=== PATIENT | female | born 1990 | race Caucasian/White ===

== ENCOUNTER 2017-02-13 16:46 | Day surgery (SDC) | payer OTHER ==
[2017-02-13 17:34] VITALS: BMI 23.0
[2017-02-13 19:01] LABS: Hemoglobin 12.2 g/dL (12.0-16.0); Mean Corpuscular HGB CONC 34.3 g/dL (32.0-36.0); Mean Corpuscular Hemoglobin 34.3 pg (27.0-31.0); Mean Platelet Volume 6.6 fL (7.4-10.4); Platelet Count 257 thou/uL (130-400); RBC Distribution Width 11.5 % (11.5-14.5); Red Blood Cell (RBC) Count 3.54 mill/uL (4.20-5.40); White Blood Cell (WBC) Count 10.1 thou/uL (4.8-10.8)
[2017-02-13 19:22] LABS: ALT (SGPT) 22 U/L (8-55); AST (SGOT) 18 U/L (5-34); Albumin 3.7 g/dL (3.5-5.0); Alkaline Phosphatase 78 U/L (40-150); Anion Gap 13 mmol/L (10-20); BUN (Urea Nitrogen) 13 mg/dL (7.0-18.7); Bilirubin, Total 0.3 mg/dL (0.2-1.2); Calc. Creatinine Clearance 119 mL/min (70-130); Calcium 9.3 mg/dL (7.8-10.44); Carbon Dioxide 22 mmol/L (22-29); Chloride 103 mmol/L (98-107); Estimated GFR-MDRD Greater than 90; Globulin 2.8 g/dL (2.4-3.5); Glucose 92 mg/dL (70-105); Protein, Total 6.5 g/dL (6.0-8.3); Sodium 134 mmol/L (136-145)
--- NOTE | 2017-02-13 20:35 | PDOC.EVN ---
Event Note - Event Note Event Note: Discharge from triage: I assumed care at 1999. We were waiting for EKG completion. EKG with normal sinus rhythm. Ok for outpatient follow up with Cardiology on Wednesday. No sxs PIH , PTL, PPROM.
--- NOTE | 2017-02-16 07:42 | EKG ---
Test Reason : STAT Blood Pressure : / mmHG Vent. Rate : 079 BPM Atrial Rate : 079 BPM P-R Int : 120 ms QRS Dur : 094 ms QT Int : 358 ms P-R-T Axes : 048 072 038 degrees QTc Int : 410 ms Normal sinus rhythm Normal ECG No previous ECGs available Confirmed by DR. Basil PASCUAL (3) on 02/16/2017 7:41:56 AM Referred By: MAURO Confirmed By:DR. Basil PASCUAL
== END 2017-02-13 20:35 | disposition home or self-care (01) ==
LOC: L&D/OP 16:46
PROVIDERS: ATTEND Obstetrics & Gynecology
DX: O99.89 Other specified diseases and conditions complicating pregnancy, childbirth and the puerperium (principal); R42 Dizziness and giddiness; R00.0 Tachycardia, unspecified; Z3A.00 Weeks of gestation of pregnancy not specified
CPT/HCPCS: 36415; 36416; 80053; 84443; 85027; 93005; 93010; 99283

== ENCOUNTER 2017-04-21 18:54 | Observation (INO) | payer OTHER ==
[2017-04-21 19:32] VITALS: BMI 25.4
[2017-04-21 20:05] LABS: Amnisure Internal Control QC ACCEPTABLE (ACCEPTABLE); Amnisure Test No Membranes Rupture (No Rupture)
[2017-04-21] MEDS ORDERED: Betamet Acet/Betamet Na Ph 30 MG/5 ML VIAL IM SCH (20:15)
[2017-04-21] MEDS ORDERED: Lactated Ringer's 1,000 ML IV SCH ×3 (20:15→22:00)
[2017-04-21] MEDS ORDERED: Zolpidem Tartrate 5 MG TAB PO PRN (22:11)
[2017-04-21 23:10] LABS: Hemoglobin 13.8 g/dL (12.0-16.0); Mean Corpuscular HGB CONC 34.9 g/dL (32.0-36.0); Mean Corpuscular Hemoglobin 34.1 pg (27.0-31.0); Mean Corpuscular Volume 97.7 fl (81.0-99.0); Mean Platelet Volume 7.6 fL (7.4-10.4); Platelet Count 226 thou/uL (130-400); RBC Distribution Width 11.5 % (11.5-14.5); Red Blood Cell (RBC) Count 4.05 mill/uL (4.20-5.40); White Blood Cell (WBC) Count 10.3 thou/uL (4.8-10.8)
[2017-04-22 00:01] LABS: Hep B Surf Ag Non-Reactive S/CO (NonReactive); Syphilis Antibody Nonreactive (Nonreactive); Syphilis Antibody Index 0.03 S/CO (<1.00 Non-Reactive)
[2017-04-22] MEDS: Ondansetron HCl/PF 4 MG/2 ML Vial IVP PRN ×2 (00:40→06:45)
--- NOTE | 2017-04-22 07:39 | PRG ---
DATE OF SERVICE: 04/21/2017 PRIMARY OB: Dr. Xiang García CHIEF COMPLAINT: Abdominal pains. HISTORY OF PRESENT ILLNESS: The patient is a 26-year-old female with an intrauterine at 36 weeks who presented to Labor and Delivery with frequent and strong uterine contractions. She reports that they are about every 3-4 minutes and have been going on since about 4 o'clock in the afternoon. The patient denies any leaking of fluid or vaginal bleeding, though she does report some bloody show. The patient denies any recent illness, fever , fall, headache, chest pain, shortness of breath, nausea, vomiting, diarrhea, constipation. She denies any new rashes, hip or knee problems, back problems, vaginal bleeding, leaking fluid, change in her discharge other than the bloody show or urinary urgency, frequency. PAST MEDICAL HISTORY: Negative. PAST SURGICAL HISTORY: Negative. OBSTETRIC HISTORY: This is her first . ALLERGIES: No known drug allergies. SOCIAL HISTORY: Denies drug, tobacco use. Denies etoh use with MEDICATIONS: vitamins. OB LABORATORY: Blood type is O positive, antibody screen is negative. Hepatitis B surface antigen is negative, HIV is negative. RPR is nonreactive. The remainder of her labs are unavailable. REVIEW OF SYSTEMS: Per HPI. PHYSICAL EXAMINATION: VITAL SIGNS: Blood pressure 112/74, heart rate of 81, respiratory rate is 16, temperature 98.4. GENERAL: She appears to be in no acute distress, although she does look uncomfortable when contractions come. She is alert and oriented, cooperative and pleasant to interact with. HEENT: Normocephalic, atraumatic. LUNGS: Clear to auscultation bilaterally. HEART: Regular rate and rhythm. ABDOMEN: Soft and gravid and nontender. EXTREMITIES: Nontender, nonedematous. CERVICAL EXAM: Her cervical exam per nursing staff changed from 250, -2 to 375 and -1 over 2 hours. heart tracing was performed for threatened labor interpreted by Dr. Scott. Baseline is in the 120s with moderate long-term variability, positive accelerations, no decelerations, duration has been more than 4 hours. Tocometer showing contractions about every 2 minutes when she first arrived, now approximately 12 hours later, they are difficult to assess but there is a lot of irritability, but the contractions seemed to be spaced about every 12 minutes. ASSESSMENT AND PLAN: The patient has been in observation through the night. Given the cervical change early in her evaluation, the patient has made no significant change since that initial change at 3 cm and contractions continued to space and improve though when she does feel them they are intense. Her primary OB, Dr. García has been notified who will be taking over care and making disposition. Fetus has a category 1 tracing. [facility]
--- NOTE | 2017-04-22 08:37 | PDOC.LDPN ---
Labor & Delivery Progress Note - Subjective Subjective: comfortable - Objective Vital signs reviewed and normal: yes General: resting Uterine fundus: non tender Dilation: 2 Effacement: 50% Station: -3 FHT: category 1 [place] contractions every: irregular contractions - Assessment (1) 36 weeks gestation of Code(s): Z3A.36 - 36 WEEKS GESTATION OF Current Visit: Yes Status : Acute (2) contractions Code(s): O47.9 - FALSE LABOR, UNSPECIFIED Current Visit: Yes Status: Acute Plan: other -: A/P: Pt admitted for obs overnight w contractions, no cervical change for approx 8hrs. No LOF, rare ctx noted by pt. Discussed plan for DC this AM, strict L and D warnings. Pt agrees to plan of care, declines 2nd dose of Celestone.
[2017-04-22 08:41] VITALS: BP 109/66; TEMP 98
--- NOTE | 2017-04-22 13:36 | DIS ---
ADMISSION DIAGNOSIS: contractions at 36 weeks. DISCHARGE DIAGNOSIS: contractions at 36 weeks. HOSPITAL COURSE: Ms. Em Oviedo presented on 04/21/2017 at 36 weeks of gestation of her first preg gabino with complaints of regular contractions. The patient was evaluated and [facility] and noted to have regular contractions. Her initial cervical exam was approximately 2 cm. Du e to her regular contraction pattern and being the patient was kept for observation in Labor and Delivery. On a repeat cervical exam, her cervix was noted to be 3 cm, 50% effaced with the baby' s head well applied to the cervix. She continued to be monitored overnight with a repeat cervical ex am at approximately 3:00 a.m. with cervix at that time noted to be approximately 2.5 to 3 cm, still 5 0% effaced and the baby's head now ballottable. At this time, the patient reported feeling less cont ractions and less pressure. She continued to rest and be monitored through the phone triage specialist hours a nd was reexamined by me at approximately 8:30 in the morning. At that time, she was noted to have ut erine irritability and irregular contractions. The heart rate tracing was reactive and reassur ing. She denied any loss of fluid, did have some light vaginal bleeding or spotting that had been no blanca overnight after the cervical exams. She reported that she was comfortable going home. Her cervi x was reexamined and noted to be unchanged from the 3 a.m. exam that was approximately 2.5 cm dilated , 50% effaced and the baby's head was ballottable at -3 to -4 station. The patient was counseled aga in with labor warnings. She was instructed to the returned to the hospital with any loss of fluid, any painful regular uterine contractions or any vaginal bleeding that was bright red, or any other concerning findings to her. The patient and her spouse verbalized understanding of the plan of care and agreed to discharge this morning.
== END 2017-04-22 09:00 | disposition home health service (06) ==
LOC: L&D/OP 18:54 → INTOOBSV 22:33 → L&D 22:33
PROVIDERS: ADMIT Obstetrics & Gynecology; ATTEND Obstetrics & Gynecology
DX: O47.03 False labor before 37 completed weeks of gestation, third trimester (principal); Z79.899 Other long term (current) drug therapy; Z3A.36 36 weeks gestation of pregnancy
CPT/HCPCS: 84112; 85027; 86780; 87081; 87340; 96361; 96374; 96376; 99285; G0378; J0702; J2405

== ENCOUNTER 2017-04-24 19:39 | Day surgery (SDC) | payer OTHER ==
[2017-04-24 20:05] VITALS: BMI 25.4
--- NOTE | 2017-04-25 07:16 | PRG ---
DATE OF SERVICE: 04/24/2017 TIME OF SERVICE: 1940 hours. PRESENTING COMPLAINT: Contractions. HISTORY OF PRESENT ILLNESS: Ms. Oviedo is a 26-year-old 1, para 0 with an EDC of 05/18/2017, placing her at 36 weeks and 3 days, who presents complaining of contractions. She has been seen in L and D unit before for the same complaint. She has had contractions over the past week. She denies rupture of membranes, reports active fetus, denies bleeding. 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 Xiang García at [facility]. 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 Blood type O positive. PAST MEDICAL HISTORY: None. PAST SURGICAL HISTORY: None. ALLERGIES: Denies. MEDICATIONS: vitamins. SOCIAL HISTORY: Denies tobacco, alcohol, or IV drug use. FAMILY HISTORY: Noncontributory. REVIEW OF SYSTEMS: Noncontributory. PHYSICAL EXAMINATION: GENERAL: White female in no acute distress. VITAL SIGNS: Temperature 97.6, respirations 18, and blood pressure 118/72. HEENT: Within normal limits. LUNGS: Clear to auscultation bilaterally. HEART: Regular rate and rhythm. BREASTS: No masses bilaterally. ABDOMEN: Soft, nontender. Fundal height of 36 cm. Palpable contractions every 3 to 5 minutes. FHT s 130s to 140s. PELVIC: Vulva without lesions. Vagina without discharge. Cervix is 3, 50, -2, cephalic, bag of jovita er intact by nurse. heart rate tracing was obtained which revealed a category 1 strip without decelerations. The patient's cervix is 3, 50, -2, which was exact same exam 2 days ago. IMPRESSION: Prodromal labor without cervical change, no evidence of active labor. PLAN: Reassurance, discharge home, keep scheduled followup on 04/27/2017.
== END 2017-04-24 20:50 | disposition home or self-care (01) ==
LOC: L&D/OP 19:39
PROVIDERS: ATTEND Obstetrics & Gynecology
DX: O47.03 False labor before 37 completed weeks of gestation, third trimester (principal); Z79.899 Other long term (current) drug therapy; Z3A.36 36 weeks gestation of pregnancy

== ENCOUNTER 2017-05-05 09:43 | Day surgery (SDC) | payer OTHER ==
[2017-05-05 10:29] VITALS: BP 125/84; TEMP 98.6; BMI 26.5
--- NOTE | 2017-05-05 10:42 | PDOC.LDHP ---
Labor and Delivery H&P HPI: Patient is a 26 yo G1 with EDC 4/3, 38 weeks, with CTX. No LOF, No VB. No CASILLAS, no visual changes. Was 3cm in office yesterday. Good FM.Sees Dr García. Current gestational age (weeks): 38 Due date: 05/18/17 Dating criteria: last menstrual period Grav: 1 Para: 0 Current complications: none Abnormal US findings: No Current medications: pre- vitamins Previous surgical history: none Allergies/Adverse Reactions: Allergies Allergy/AdvReac Type Severity Reaction Status Date / Time No Known Allergies Allergy Verified 04/21/17 19:28 Social history: other (FAMILY HX: non-contributing) - Physical Exam Vital signs reviewed and normal: yes (BP 125/80) General: NAD Heart: RRR Lungs: CTAB Abdomen: gravid FHT: category 1 [place] contractions every: irregular contractions, Q3-6 - Vaginal Exam cm dilated: 3 Effacement: 75% Station: -2 - Assessment Threatened labor at term (latent phase. . - Plan Plan: observation in L&D (Obs for now. status reassuring. May ambulate this AM and recheck in 2 hours. Pain meds PRN)
--- NOTE | 2017-05-05 12:50 | PDOC.EVN ---
Event Note - Event Note Event Note: Patient rehecked after 2 hours: still /-2 nut chantell every 3-6 inutes. Will recheck one more HR. Will contact MD Ricky
--- NOTE | 2017-05-05 13:39 | PDOC.EVN ---
Event Note - Event Note Event Note: Follow up: no cervical change. Ok for release and office check in [address] García notified. Class 2 NST.
== END 2017-05-05 13:45 | disposition home or self-care (01) ==
LOC: L&D/OP 09:43
PROVIDERS: ATTEND Obstetrics & Gynecology
DX: O47.1 False labor at or after 37 completed weeks of gestation (principal); Z3A.38 38 weeks gestation of pregnancy; Z79.899 Other long term (current) drug therapy
CPT/HCPCS: 99283

== ENCOUNTER 2017-05-10 05:30 | Inpatient (IN) | payer OTHER ==
[2017-05-12] MEDS ORDERED: Acetaminophen/Codeine 30-300mg Tablet PO PRN ×3 (06:44→19:58)
[2017-05-12] MEDS ORDERED: Acetaminophen 500 MG TAB PO PRN (06:44)
[2017-05-12] MEDS ORDERED: Promethazine HCl 25 MG/ML VIAL IM PRN ×4 (06:44→19:58)
[2017-05-12] MEDS ORDERED: Ondansetron HCl/PF 4 MG/2 ML Vial IVP PRN ×5 (06:44→19:58)
[2017-05-12] MEDS ORDERED: LR 500 ML/Oxytocin 10 units 500 ML IV SCH ×2 (06:44)
[2017-05-12] MEDS ORDERED: Ibuprofen 800 MG TAB PO PRN (06:44)
[2017-05-12] MEDS ORDERED: LR / Pitocin 40 units/1000 ml 1,000 ML IV PRN (06:44)
[2017-05-12] MEDS ORDERED: Lidocaine 1% (PF) 30 ML VIAL SC PRN (06:44)
[2017-05-12] MEDS: Lactated Ringer's 1,000 ML IV SCH ×2 (07:40→11:24)
[2017-05-12 07:56] LABS: Hemoglobin 13.1 g/dL (12.0-16.0); Mean Corpuscular HGB CONC 35.1 g/dL (32.0-36.0); Mean Corpuscular Hemoglobin 33.9 pg (27.0-31.0); Mean Corpuscular Volume 96.5 fl (81.0-99.0); Mean Platelet Volume 7.5 fL (7.4-10.4); Platelet Count 219 thou/uL (130-400); RBC Distribution Width 11.4 % (11.5-14.5); Red Blood Cell (RBC) Count 3.85 mill/uL (4.20-5.40); White Blood Cell (WBC) Count 8.2 thou/uL (4.8-10.8)
--- NOTE | 2017-05-12 08:13 | PDOC.LDHP ---
Labor and Delivery H&P Chief complaint: scheduled induction HPI: Pt is a 26y G1 @ 39.1 weeks here for elective IOL w favorable cervix. Current gestational age (weeks): 39 Due date: 05/18/17 Dating criteria: last menstrual period, first trimester ultrasound Grav: 1 Para: 0 Current complications: none Abnormal US findings: No Current medications: pre-virgil vitamins Previous surgical history: none Allergies/Adverse Reactions: Allergies Allergy/AdvReac Type Severity Reaction Status Date / Time No Known Allergies Allergy Verified 04/21/17 19:28 Social history: none - Physical Exam Vital signs reviewed and normal: yes General: resting Heart: RRR Lungs: CTAB Abdomen: gravid Extremeties: no edema FHT: category 1 [place] contractions every: 5-6 mins - Vaginal Exam cm dilated: 4 Effacement: 90% Station: -1 - OB Labs Blood type: O RH: positive Antibody Screen: negative HIV: negative RPR: negative HEPSAg: negative 1 hour GCT: negative GBS: negative Additional Labs: rubella unknown - Assessment L&D Assessment: elective induction at term - Plan Plan: admit to L&D, labor augmentation if indicated, informed consent obtained, anesthesia consult for pain management -: A/P: Elective IOL @ 39.1 weeks w favorable cervix. FHT reassuring, AROM on admit exam with clear fluid. Plan for pitocin for induction.
[2017-05-12 08:33] LABS: Syphilis Antibody Nonreactive (Nonreactive); Syphilis Antibody Index 0.02 S/CO (<1.00 Non-Reactive)
[2017-05-12 08:34] LABS: HBSAg Index 0.21 S/CO (0-0.99); Hep B Surf Ag Non-Reactive S/CO (NonReactive)
[2017-05-12 08:44] VITALS: BMI 26.5
[2017-05-12] MEDS ORDERED: Bupivacaine 0.5% 20 ML, Fentanyl 400 MCG in Sodium Chloride 0.9% 72 ML EPIDURAL SCH (09:45)
[2017-05-12] MEDS ORDERED: DISCONTINUE ALL PREVIOUS NARCOTICS FS SCH (09:45)
[2017-05-12] MEDS ORDERED: ePHEDrine/0.9% NaCl/PF SYRINGE 50 mg/10 ml SLOW IVP PRN (10:31)
[2017-05-12] MEDS ORDERED: Eucerin (Mineral Oil/Petrolatum,White) 30 gm Jar TOP PRN ×2 (10:31→16:31)
[2017-05-12] MEDS ORDERED: Acetaminophen 325 MG TAB PO PRN ×2 (10:31→19:58)
[2017-05-12] MEDS ORDERED: Lactated Ringer's 500 ML IV PRN (10:31)
[2017-05-12] MEDS ORDERED: Naloxone HCl 0.4 mg/ml Vial IVP PRN ×4 (10:31→16:31)
[2017-05-12] MEDS ORDERED: Fentanyl 4mcg/Marcaine 0.1% Cassette 100 ML EPIDURAL SCH (10:45)
[2017-05-12] MEDS ORDERED: Communication Order-Pharmacy FS SCH ×3 (10:45→19:00)
[2017-05-12] MEDS ORDERED: Fentanyl 100 MCG/2 ML VIAL ONE (11:09)
[2017-05-12] MEDS ORDERED: Lidocaine 1% PF 5 ML VIAL ONE (11:55)
[2017-05-12] MEDS ORDERED: Ondansetron HCl/PF 4 MG/2 ML Vial ONE ×3 (11:55→17:11)
[2017-05-12] MEDS ORDERED: Dexamethasone 20 MG/5 ML VIAL ONE (11:55)
[2017-05-12] MEDS ORDERED: Lidocaine 2% MPF 10 ML AMP (For Epidural Use) ONE (11:55)
--- NOTE | 2017-05-12 13:26 | PDOC.LDPN ---
Labor & Delivery Progress Note - Subjective Subjective: comfortable - Objective Vital signs reviewed and normal: yes General: resting Dilation: 8 Effacement: 100% Station: 0 FHT: category 1 [place] contractions every: 3 AROM: clear fluid - Assessment (1) 39 weeks gestation of Code(s): Z3A.39 - 39 WEEKS GESTATION OF Current Visit: Yes Status : Acute Plan: continue plan of care
[2017-05-12] MEDS ORDERED: Bicitra 30 ML UDCUP ONE (16:15)
[2017-05-12] MEDS ORDERED: CEFAZOLIN/Water 2 GM/20 ML SYRINGE ONE (16:15)
--- NOTE | 2017-05-12 16:23 | PDOC.LDPN ---
Labor & Delivery Progress Note - Subjective Subjective: comfortable - Objective Vital signs reviewed and normal: yes General: breathing through contractions Dilation: 10 Effacement: 100% Station: 2+ FHT: category 3 - Assessment (1) 39 weeks gestation of Code(s): Z3A.39 - 39 WEEKS GESTATION OF Current Visit: Yes Status : Acute Plan: other -: Pt progressed to 10/100/+1, late and variable decels noted w iniation of pushing. Pt rested with recovery of FHT immediately w cessation of pushing. Pt started pushing again with reassuring FHT for about 20 mins, subsequent return to [facility], consented for operative delivery, with contraction and vacuum placed no descent with vacuum assistance and FHT nonreassuring. Discussed indication for 1CS, pt agrees.
[2017-05-12] MEDS ORDERED: Lidocaine 2% 10 ML INJ ONE ×2 (16:24→16:25)
[2017-05-12] MEDS ORDERED: PHENYLEPHRINE-NS 100 MCG/ML 10 ML SYRINGE ONE (16:27)
[2017-05-12] MEDS ORDERED: Bicitra 30 ML UDCUP PO SCH (16:30)
[2017-05-12] MEDS ORDERED: CEFAZOLIN/Water 2 GM/20 ML SYRINGE SLOW IVP SCH (16:30)
[2017-05-12] MEDS ORDERED: Meperidine HCl/PF 25 MG/ML VIAL SLOW IVP PRN (16:31)
[2017-05-12] MEDS ORDERED: Naloxone HCl 0.4 mg/ml Vial IV PRN ×2 (16:31→18:47)
[2017-05-12] MEDS ORDERED: HYDROmorphone 2 MG/ML VIAL SLOW IVP PRN (16:31)
[2017-05-12] MEDS ORDERED: Promethazine HCl 25 MG SUPP PR PRN (16:31)
[2017-05-12] MEDS ORDERED: diphenhydrAMINE 50 MG/ML VIAL IVP PRN ×2 (16:31→18:47)
[2017-05-12] MEDS ORDERED: Ketorolac Tromethamine 30 MG/ML VIAL IVP PRN (16:31)
[2017-05-12] MEDS ORDERED: Oxytocin 10 UNITS/ML VIAL ONE (16:32)
[2017-05-12] MEDS ORDERED: Morphine PF 1 MG/ML SYR ONE (16:37)
[2017-05-12] MEDS ORDERED: Ketorolac Tromethamine 30 MG/ML VIAL IVP SCH (16:45)
[2017-05-12] MEDS ORDERED: Diprivan 20 ML ONE (16:50)
[2017-05-12] MEDS ORDERED: Fentanyl 250 MCG/5 ML VIAL ONE (16:52)
[2017-05-12] MEDS ORDERED: Dexamethasone 4 mg/ml Vial ONE (17:11)
--- NOTE | 2017-05-12 17:32 | PDOC.OPDEL ---
OB Operative/Delivery Note Delivery Dr/Surgeon: Ricky Assist: Chayo Pre-Delivery Diagnosis: non-reassuring tracing Procedure/Post Delivery Dx: primary low transverse CS Weeks gestation: 39 Anesthesia: epidural - Findings A Sex: female - 1 min: 1 - 5 min: 7 (10 min 9) - Additional Findings/Plan Placenta delivered: manual removal findings: low transverse hysterotomy with extension (2cm extension in left corner inferior, repaired w hysterotomy), normal tubes, normal ovaries Estimated blood loss: 800ml Compilations/Other Findings: attempt to vacuum, operative deilvery x 1 ctx with no descent/change in station noted-> consented to OR for CS Post delivery plan: routine recovery
[2017-05-12] MEDS ORDERED: Ketorolac Tromethamine 30 MG/ML VIAL ONE (18:04)
[2017-05-12] MEDS ORDERED: Meperidine HCl/PF 25 MG/ML VIAL ONE (18:23)
[2017-05-12] MEDS ORDERED: diphenhydrAMINE 50 MG/ML VIAL IM PRN (18:47)
[2017-05-12] MEDS ORDERED: Morphine CADD 1 MG/ML CADD IVPB PRN (18:47)
[2017-05-12] MEDS ORDERED: Zolpidem Tartrate 5 MG TAB PO PRN (18:47)
[2017-05-12] MEDS ORDERED: diphenhydrAMINE 25 MG CAP PO PRN ×2 (18:47→19:58)
[2017-05-12] MEDS ORDERED: Lanolin Ointment 7 GM TUBE TOP PRN (19:58)
[2017-05-12] MEDS ORDERED: Bisacodyl 10 MG SUPP PR PRN (19:58)
[2017-05-12] MEDS ORDERED: Meperidine HCl/PF 25 MG/ML VIAL IM PRN (19:58)
[2017-05-12] MEDS ORDERED: Lactated Ringer's 1,000 ML IV SCH (19:58)
[2017-05-12] MEDS ORDERED: Adacel (T-DAP) 0.5 ML VIAL IM ONE (19:58)
[2017-05-12] MEDS ORDERED: LR w/ Pitocin 40 units/1000 ML BAG IV SCH (20:15)
[2017-05-12] MEDS: Ferrous Sulfate 325 MG TAB PO SCH (21:52)
[2017-05-12] MEDS: Docusate Calcium (SURFAK) 240 MG CAP PO SCH (21:52)
[2017-05-13 06:25] LABS: Hemoglobin 10.4 g/dL (12.0-16.0); Mean Corpuscular HGB CONC 34.9 g/dL (32.0-36.0); Mean Corpuscular Hemoglobin 34.4 pg (27.0-31.0); Mean Corpuscular Volume 98.6 fl (81.0-99.0); Mean Platelet Volume 7.2 fL (7.4-10.4); Platelet Count 184 thou/uL (130-400); RBC Distribution Width 11.5 % (11.5-14.5); Red Blood Cell (RBC) Count 3.01 mill/uL (4.20-5.40); White Blood Cell (WBC) Count 12.6 thou/uL (4.8-10.8)
--- NOTE | 2017-05-13 08:54 | PDOC.PP ---
Post Progress Note Post Day #: 1 Subjective: sore today, pain controlled w meds, baby not latching well, no concerns PO intake tolerated: yes Flatus: yes Ambulation: yes Vital Signs (12 hours) Temp Pulse Resp BP 05/13/17 06:04 16 05/13/17 04:00 99.1 F 70 16 112/57 L 05/13/17 02:00 16 05/13/17 00:48 16 05/12/17 23:30 98.2 F 61 16 119/60 05/12/17 22:20 16 05/12/17 21:20 98.1 F 65 16 118/71 Weight Weight 150 lb - Physical Examination General: NAD Respiratory: non-labored breathing Abdominal: no distention, appropriately TTP Fundus firm & at: below umb Extremities: negative homans (B) Skin: CS incision dry & intact, no rash Neurological: no gross focal deficits Psychiatric: A&Ox3, normal affect Result Diagrams: 05/13/17 05:24 Additional Labs: Post Labs Blood Type O POSITIVE 05/12/17 07:40 Hep Bs Antigen Non-Reactive S/CO (NonReactive) 05/12/17 07:40 (1) 39 weeks gestation of Code(s): Z3A.39 - 39 WEEKS GESTATION OF Status: Acute (2) 36 weeks gestation of Code(s): Z3A.36 - 36 WEEKS GESTATION OF Status: Deleted (3) delivery delivered Code(s): O82 - ENCOUNTER FOR DELIVERY WITHOUT INDICATION Status: Acute - Assessment/Plan A/p: POD #1 sp 1CS doing well, no concerns other than latch, LC pending. Rubella IgG ordered for missing lab on PNR from S and [facility]. Advance orders.
[2017-05-13] MEDS: Prenatal Vitamin 1 TAB PO SCH (09:06)
[2017-05-13] MEDS: Simethicone Chewable 80 MG TAB PO PRN ×2 (09:06→20:12)
[2017-05-13] MEDS: Docusate Calcium (SURFAK) 240 MG CAP PO SCH ×2 (09:06→20:12)
[2017-05-13] MEDS: Ferrous Sulfate 325 MG TAB PO SCH ×2 (09:08→20:11)
[2017-05-13] MEDS: Ibuprofen 800 MG TAB PO SCH ×2 (10:32→20:12)
--- NOTE | 2017-05-13 14:12 | ADD-OP ---
ADDENDUM DATE OF SERVICE: 05/12/2017 I was present and scrubbed to assist the primary low transverse with Dr. Xiang García. Morteza se see her operative report for full details.
--- NOTE | 2017-05-13 14:21 | OP ---
DATE OF PROCEDURE: 05/12/2017 PREOPERATIVE DIAGNOSES: 1. A 39 weeks and 1 day. 2. Nonreassuring heart tone. 3. No descent with trial of operative vaginal delivery with vacuum. POSTOPERATIVE DIAGNOSIS: Status post primary low transverse section. PROCEDURES PERFORMED: Primary low transverse section. SURGEON: Xiang García D.O. PAINTER ASSISTANT: Paula Domingo M.D. ANESTHESIA: Epidural per Dr. Barrera. ESTIMATED BLOOD LOSS: 800 mL. COMPLICATIONS: None. FINDINGS: 1. Female , weight 8lbs and 7 ounces. Apgars 1, 7 and 9. Skin to skin in the OR achieved. 2. [place] [facility] with [id number] in the operating room. 3. Cord gas ordered, result pending 4. Low transverse hysterotomy with 2 cm extension from the left inferior corner , repaired. 5. Placenta delivered intact. 6. Fundus firm Em Oviedo was admitted for induction of labor at 39 weeks with a favorable cervix beginning at 4 cm. Her induction began with an amniotomy this morning, she advanced without complication to 10 cm completely dilated in +1 station. Shortly after the patient began pushing, she was noted to have late and variable decelerations. I was in clinic at that time and reviewed the strip with the nurse and advised rest until I was able to be at the patient's bedside. When the patient stopped pushing, the strip immediately resuscitated to a reassuring tracing. I reevaluated the patient on labor and delivery with a reassuring tracing and the station was +2. We discussed pushing again. The patient pushed for approximately 20 minutes with a reassuring tracing and no decelerations noted; however, after approximately 20 minutes, there was significant change, the baby began having late deceleration to the 70s to 80s after contraction. At that time, the baby was at +3 station and the patient was consented for operative delivery. The vacuum was placed over the flexion point, and with the patient's next contraction, gentle traction was used with no advancement of station noted with a concern for compromise. After the attempt to operative delivery the patient was consented and the prepped for primary , moved to the OR. PROCEDURE DETAILS: The patient was taken back to the OR with IV fluids running. Once she was in the OR, she had been placed in dorsal supine position with a left lateral tilt. An epidural and Junior catheter had previously been placed. Of note, she has blood-tinged urine prior to the start of the procedure. There was some delay the initial start of the procedure as the anesthesia was not adequate by the time the patient was prepped and draped. heart tones were reassuring when we got into the operating room, where we waited approximately 5 more minutes for anesthesia to set when we felt that we could begin the began that procedure. Low transverse hysterotomy was made with the scalpel. Subcutaneous tissue was excised and fascia was easily identified, incised in the midline and extended superolaterally with curved Roca scissors. Jacki clamps were placed at the superior border of the fascia, which was sharply and bluntly dissected off the rectus abdominis muscles in both caudad and cephalad directions to allow adequate space for delivery of the . The rectus muscles were in the midline. Peritoneum was entered and stretched laterally. Metzenbaum scissors were used to incise tight bands of the peritoneum and allow space for delivery of the . The bladder was noted to be very edematous. A bladder flap was created, the bladder was dissected away from the planned hysterotomy site. The hysterotomy was made with the scalpel in a low transverse fashion and clear amniotic fluid was noted. A Tran maneuver was used to stretch the hysterotomy site to allow for delivery of the infant. The infant's head was delivered from OP position through the hysterotomy. A tight pelvic inlet noted during delivery of the 's head. Shoulders were then delivered followed by the body. The cord was doubly clamped and cut and the infant was handed off to the special care nurses in Neonatology that were present for delivery. Cord blood was collected and the placenta was delivered. The uterus was massaged to firm and cleared of clot and debris. Due to the patient's discomfort, the uterus was not exteriorized and the tubes and ovaries were not well visualized. A small approximately 2 cm extension was noted at the left inferior corner and a ring clamp was placed at its extension. The extension was closed with Monocryl suture in a running locked fashion. This was then incorporated into the hysterotomy. Once the hysterotomy was closed, attention was turned back to the left corner, where a small area of bleeding was noted. The second figure-of- eight stitch was placed to this area with hemostasis noted. The hysterotomy and pericolic gutters were irrigated and suctioned dry. Hysterotomy was inspected again and observed, no bleeding noted. An [place] O retractor that was placed prior to the hysterotomy was removed. The muscle belly and fascia were inspected and no areas of bleeding were noted. There appeared to be some resolution to the bladder edema after delivery of the and the urine that was in the Junior tube was noted to be clear. The fascia was closed with PDS suture from [id number]. The subcutaneous tissue was reapproximated with 3 interrupted sutures. The skin was closed with 4-0 Monocryl and dressed with Dermabond dressing. The patient was then cleaned, dried and taken to the recovery room in good condition. PERRI
[2017-05-13] MEDS: Acetaminophen/Codeine 30-300mg Tablet PO PRN (21:21)
[2017-05-13] MEDS ORDERED: Ibuprofen 800 MG TAB PO SCH (22:00)
[2017-05-14] MEDS: Acetaminophen/Codeine 30-300mg Tablet PO PRN ×2 (03:58→22:12)
[2017-05-14] MEDS: Ibuprofen 800 MG TAB PO SCH ×3 (03:58→21:30)
--- NOTE | 2017-05-14 08:02 | PRG ---
DATE OF SERVICE: 05/14/2017 PRIMARY OB: Dr. Xiang García HISTORY OF PRESENT ILLNESS: The patient is postop day 2 status post a primary for nonreass uring heart tones. She reports she is tolerating p.o., voiding on her own, having decreased lo janice, ambulating and decent pain control. The patient's focus at this time is trying to get breastfe eding down. PHYSICAL EXAMINATION: VITAL SIGNS: Blood pressure is 114/51, temperature 98.1, pulse 65, respiratory rate of 16. GENERAL: She appears to be in no acute distress. She is alert and oriented, cooperative and pleasan t to interact with. HEENT: Normocephalic, atraumatic. ABDOMEN: Soft. Her fundus is appropriate. Incision is clean, dry, and intact with suture. EXTREMI TIES: Nontender with minimal edema. ASSESSMENT AND PLAN: The patient is postoperative day 2 status post a primary for nonreass uring heart tones. Anticipate discharge tomorrow.
[2017-05-14] MEDS: Ferrous Sulfate 325 MG TAB PO SCH ×2 (08:43→21:44)
[2017-05-14] MEDS: Prenatal Vitamin 1 TAB PO SCH (08:44)
[2017-05-14] MEDS: Docusate Calcium (SURFAK) 240 MG CAP PO SCH ×2 (08:44→21:30)
[2017-05-14] MEDS: Simethicone Chewable 80 MG TAB PO PRN ×3 (08:47→21:30)
[2017-05-14 21:10] VITALS: TEMP 98.1
[2017-05-15] MEDS: Ibuprofen 800 MG TAB PO SCH (05:48)
--- NOTE | 2017-05-15 06:17 | PDOC.PP ---
Post Progress Note Post Day #: 3 Subjective: Doing well. . PO intake tolerated: yes Flatus: yes Ambulation: yes Vital Signs (12 hours) Temp Pulse Resp BP 05/14/17 20:00 98.1 F 74 16 119/70 Weight Weight 150 lb - Physical Examination General: NAD Cardiovascular: no m/r/g Respiratory: clear to auscultation bilaterally Abdominal: + bowel sounds Extremities: negative homans (B) Skin: CS incision dry & intact (Incision sutured and C/D/I.) Neurological: no gross focal deficits Psychiatric: A&Ox3, normal affect Result Diagrams: 05/13/17 05:24 Additional Labs: Post Labs Blood Type O POSITIVE 05/12/17 07:40 Hep Bs Antigen Non-Reactive S/CO (NonReactive) 05/12/17 07:40 Rubella IgG Antibody 7.67 index (Immune >0.99) 05/12/17 07:40 (1) delivery delivered Code(s): O82 - ENCOUNTER FOR DELIVERY WITHOUT INDICATION Status: Acute - Assessment/Plan Postop day 3 S/P Primary CS for NRFHTs after vacuum X 1. No evidence of postop issue. Incision C/D/I. No evidence abdominal distension. OK for postop DSCH. Meds: Tylenol 3 and Motrim (per [facility]) Follow up 2 weeks
--- NOTE | 2017-05-15 06:20 | PDOC.EVN ---
Event Note - Event Note Event Note: DISCHARGE NOTE Admit date: 05/12/17 Discharge date: 05/15/17. Procedure: Primary CS s/p vacuum X1 (Ricky) I evaluated the patient on POD 3 (05/15/17) and cleared her for discharge. Please see POD3 progress notes for details. Incision C/D/I...sutured closed. Home with Motrin and Tylenol #[address] García RX
[2017-05-15] MEDS: Docusate Calcium (SURFAK) 240 MG CAP PO SCH (09:34)
[2017-05-15] MEDS: Prenatal Vitamin 1 TAB PO SCH (09:34)
[2017-05-15] MEDS: Ferrous Sulfate 325 MG TAB PO SCH (09:35)
[2017-05-15 10:03] VITALS: BP 125/66
== END 2017-05-15 12:10 | disposition home or self-care (01) | DRG 766 ==
LOC: L&D 05-12 06:22 → 3SW 05-12 20:24
PROVIDERS: ADMIT Obstetrics & Gynecology; ATTEND Obstetrics & Gynecology
PROC: 10D00Z1 Extraction of Products of Conception, Low, Open Approach (ICD-10-PCS; principal; 2017-05-12)
PROC: 10907ZC Drainage of Amniotic Fluid, Therapeutic from Products of Conception, Via Natural or Artificial Opening (ICD-10-PCS; 2017-05-12)
PROC: 3E033VJ Introduction of Other Hormone into Peripheral Vein, Percutaneous Approach (ICD-10-PCS; 2017-05-12)
DX: O76 Abnormality in fetal heart rate and rhythm complicating labor and delivery (principal); O66.5 Attempted application of vacuum extractor and forceps; Z3A.39 39 weeks gestation of pregnancy; Z37.0 Single live birth
CPT/HCPCS: 36415; 51702; 85027; 86762; 86780; 86850; 86900; 86901; 87340; A4216; J1100; J1885; J2001; J2175; J2274; J2405; J2590; J2704; J3010; J3490; J7050; J7120

== ENCOUNTER 2019-03-22 12:11 | Inpatient (IN) | payer OTHER ==
[2019-03-22 12:46] VITALS: BMI 24.6
[2019-03-22] MEDS ORDERED: Ondansetron PF 4 MG/2 ML Vial IVP PRN ×3 (13:21→17:47)
[2019-03-22] MEDS ORDERED: Promethazine HCl 25 MG/ML VIAL IM PRN ×2 (13:21→15:23)
[2019-03-22] MEDS ORDERED: hydrALAZINE 20 MG/ML VIAL SLOW IVP PRN ×2 (13:21→17:47)
[2019-03-22] MEDS ORDERED: Butorphanol Tartrate 1 MG/ML VIAL SLOW IVP PRN (13:21)
[2019-03-22] MEDS ORDERED: Lidocaine 1% (PF) 30 ML VIAL ONE (13:23)
[2019-03-22] MEDS ORDERED: Lactated Ringer's 1,000 ML IV SCH ×2 (13:30)
[2019-03-22] MEDS ORDERED: CEFAZOLIN 2 GM in Premix Bag 1 BAG IVPB SCH (13:30)
[2019-03-22] MEDS ORDERED: Bicitra 30 ML UDCUP PO SCH (13:30)
--- NOTE | 2019-03-22 13:32 | PDOC.LDHP ---
Labor and Delivery H&P Chief complaint: contractions HPI: 28 yo WF c/o UCs q 3-4 mins since early this AM. Denies SROM or bleeding. Current gestational age (weeks): 38 Due date: 04/03/19 Dating criteria: last menstrual period Grav: 2 Para: 1 OB History Details: H/o failed VE with stat 1* C/s Current complications: none Abnormal US findings: No Current medications: pre- vitamins Previous surgical history: low tranverse CS Allergies/Adverse Reactions: Allergies Allergy/AdvReac Type Severity Reaction Status Date / Time No Known Allergies Allergy Verified 04/21/17 19:28 Social history: none - Physical Exam Vital signs reviewed and normal: yes General: resting Heart: RRR Lungs: CTAB Abdomen: gravid Extremeties: trace edema FHT: category 1 [place] contractions every: q 2-3 mins - Vaginal Exam cm dilated: 4 Effacement: 25% Station: -1 - Assessment L&D Assessment: term patient in labor - Plan Plan: admit to L&D, to OR for section, informed consent obtained, other (Dr. García notified of admit)
[2019-03-22 13:46] LABS: Hemoglobin 13.5 g/dL (12.0-16.0); Mean Corpuscular HGB CONC 34.3 g/dL (32.0-36.0); Mean Corpuscular Hemoglobin 32.5 pg (27.0-31.0); Mean Corpuscular Volume 94.5 fL (78.0-98.0); Platelet Count 219 thou/uL (130-400); RBC Distribution Width 11.5 % (11.5-14.5); Red Blood Cell (RBC) Count 4.15 mill/uL (4.20-5.40); White Blood Cell (WBC) Count 9.9 thou/uL (4.8-10.8)
[2019-03-22 14:27] LABS: Syphilis Antibody Nonreactive (Nonreactive); Syphilis Antibody Index 0.03 S/CO (<1.00 Non-Reactive)
[2019-03-22 14:28] LABS: HBSAg Index 0.22 S/CO (0-0.99); Hep B Surf Ag Non-Reactive S/CO (NonReactive)
[2019-03-22] MEDS ORDERED: Fentanyl 100 MCG/2 ML VIAL ONE (14:30)
[2019-03-22] MEDS ORDERED: MORPHINE 5 MG/10 ML PF VIAL ONE (14:30)
[2019-03-22] MEDS ORDERED: Oxytocin 10 UNITS/ML VIAL ONE (14:31)
[2019-03-22] MEDS ORDERED: ePHEDrine/0.9% NaCl/PF SYRINGE 50 mg/10 ml ONE (14:31)
[2019-03-22] MEDS ORDERED: Dexamethasone 4 mg/ml Vial ONE (14:31)
[2019-03-22] MEDS ORDERED: Ketorolac Tromethamine 30 MG/ML VIAL ONE (14:31)
[2019-03-22] MEDS ORDERED: Ondansetron PF 4 MG/2 ML Vial ONE (14:31)
[2019-03-22] MEDS ORDERED: PHENYLEPHRINE-NS 100 MCG/ML 10 ML SYRINGE ONE (14:39)
[2019-03-22] MEDS ORDERED: Naloxone HCl 0.4 mg/ml Vial IVP PRN ×2 (15:23)
[2019-03-22] MEDS ORDERED: Meperidine HCl/PF 25 MG/ML VIAL SLOW IVP PRN (15:23)
[2019-03-22] MEDS ORDERED: Promethazine HCl 25 MG SUPP PR PRN (15:23)
[2019-03-22] MEDS ORDERED: L&D-Morphine 4 MG/ML VIAL SLOW IVP PRN (15:23)
[2019-03-22] MEDS ORDERED: Ondansetron HCl/PF 4 MG/2 ML Vial IVP PRN (15:23)
[2019-03-22] MEDS ORDERED: diphenhydrAMINE 50 MG/ML VIAL IVP PRN (15:23)
[2019-03-22] MEDS ORDERED: Ketorolac Tromethamine 30 MG/ML VIAL IVP PRN (15:23)
[2019-03-22] MEDS ORDERED: Naloxone HCl 0.4 mg/ml Vial IV PRN (15:23)
[2019-03-22] MEDS ORDERED: HYDROmorphone 2 MG/ML VIAL SLOW IVP PRN (15:23)
[2019-03-22] MEDS ORDERED: Communication Order-Pharmacy FS SCH (15:30)
--- NOTE | 2019-03-22 15:30 | PDOC.OPDEL ---
OB Operative/Delivery Note Delivery Dr/Surgeon: Ricky Assist: Josafat Pre-Delivery Diagnosis: active labor Procedure/Post Delivery Dx: repeat low transverse CS Weeks gestation: 38 Anesthesia: spinal - Findings A Sex: male - 1 min: 9 - 5 min: 9 - Additional Findings/Plan Placenta delivered: manual removal findings: low transverse hysterotomy without extension, normal uterus Estimated blood loss: 500ml Post delivery plan: routine recovery
[2019-03-22] MEDS ORDERED: diphenhydrAMINE 25 MG CAP PO PRN (17:47)
[2019-03-22] MEDS ORDERED: Bisacodyl 10 MG SUPP PR PRN (17:47)
[2019-03-22] MEDS ORDERED: Lanolin Ointment 7 GM TUBE TOP PRN (17:47)
[2019-03-22] MEDS ORDERED: NS / Oxytocin 40 units/1000ml 1,000 ML IV SCH (17:47)
[2019-03-22] MEDS ORDERED: Acetaminophen 325 MG TAB PO PRN (17:47)
[2019-03-22] MEDS: Simethicone Chewable 80 MG TAB PO PRN (20:47)
[2019-03-22] MEDS: Ferrous Sulfate 325 MG TAB PO SCH (20:51)
[2019-03-22] MEDS: Docusate Calcium (SURFAK) 240 MG CAP PO SCH (20:51)
[2019-03-22] MEDS: Ibuprofen 800 MG TAB PO SCH (22:10)
--- NOTE | 2019-03-23 02:14 | OP ---
DATE OF PROCEDURE: 03/22/2019 PROCEDURE PERFORMED: Repeat low-transverse section. BREWMASTER: Sloan Maurice MD PREOPERATIVE DIAGNOSES: 38 weeks, active labor, previous section, declines trial of labor. POSTOPERATIVE DIAGNOSES: 38 weeks, active labor, previous section, declines trial of labor. ANESTHESIA: Spinal. COMPLICATIONS: None. ESTIMATED BLOOD LOSS: 500 mL. OPERATIVE FINDINGS: 1. Minimal adhesive disease low-transverse hysterotomy without extension. Amniotomy with clear fluid. A vigorous male infant, Apgars 9 and 9 to [facility]. Weight pending at the time of dictation. Delivered from vertex presentation. 2. Normal-appearing uterus. 3. Fallopian tubes and ovaries appear within normal limits, but full evaluation limited. DESCRIPTION OF PROCEDURE: The patient was taken back to the OR with IV fluids running. When she was in the OR, spinal anesthesia was obtained. Once anesthesia was obtained, the patient was placed in dorsal supine position with a left lateral tilt. Junior catheter was placed using sterile technique and the abdomen was prepped and draped in normal fashion for section. Surgeons were gowned and gloved. Anesthesia was tested and found to be adequate. A Pfannenstiel skin incision was made with a scalpel. The skin incision was carried down through the subcutaneous tissue to the fascia. Once the fascia was reached, it was incised in the midline and extended superolaterally using curved Roca scissors. Jacki clamps were placed at the superior border of the fascia, which was sharply and bluntly dissected off the rectus abdominis muscles in a cephalad direction. In similar fashion, they were placed at the inferior border of the fascia, which was dissected down towards the level of the pubic symphysis. The rectus muscles were bluntly entered. The peritoneum was bluntly entered and stretched laterally. An Dakota O retractor was placed into the abdominal cavity for retraction, visualization, and protection of the wound. A bladder flap was created and the bladder was dissected away from the planned hysterotomy site. A low-transverse hysterotomy was made with a scalpel. The hysterotomy was bluntly entered and stretched using the Tran maneuver. An amniotomy was performed with clear fluid noted. The was delivered with gentle fundal pressure through the incision. The nose and mouth were suctioned. The cord was doubly clamped and cut. The infant was handed off to special care nurse in attendance. Cord blood was collected. The placenta was delivered. The uterus was not easily exteriorized and was left in situ. There was limited examination of the fallopian tubes and ovaries because of this, but they did appear normal. The intrauterine cavity was cleaned with a clean dry sponge. The hysterotomy was inspected and no extension was noted. Hysterotomy was closed in a running locked fashion from corner to corner. Hemostasis was noted at the end of the hysterotomy closure. The hysterotomy and paracolic gutters were copiously irrigated and suctioned dry. Hysterotomy was inspected again with no areas of bleeding noted. The Dakota O retractor was removed from the abdominal cavity. The rectus muscles and fascia were inspected with no areas of bleeding noted. The rectus fascia was reapproximated with PDS suture from corner to corner. The subcutaneous tissue was then irrigated and dried. Any small areas of bleeding were controlled with Bovie cauterization. A series of four interrupted plain gut sutures were placed to reapproximate the subcutaneous layer. Subcuticular layer was closed with 4-0 Monocryl and dressed with Dermabond dressing. The patient tolerated the procedure well. The fundus was firm and there was minimal bleeding after vaginal bleeding after the procedure. The patient was then taken to recovery room in good condition. Job ID: [id number]
[2019-03-23] MEDS: Ibuprofen 800 MG TAB PO SCH ×3 (04:57→21:12)
[2019-03-23 05:39] LABS: Hemoglobin 11.9 g/dL (12.0-16.0); Mean Corpuscular HGB CONC 33.5 g/dL (32.0-36.0); Mean Corpuscular Hemoglobin 32.2 pg (27.0-31.0); Mean Corpuscular Volume 96.1 fL (78.0-98.0); Mean Platelet Volume 7.8 fL (7.4-10.4); Platelet Count 193 thou/uL (130-400); RBC Distribution Width 11.4 % (11.5-14.5); Red Blood Cell (RBC) Count 3.68 mill/uL (4.20-5.40); White Blood Cell (WBC) Count 11.7 thou/uL (4.8-10.8)
--- NOTE | 2019-03-23 08:32 | PDOC.PP ---
Post Progress Note Post Day #: 1 Subjective: doing well, no concerns, ambulating, voiding, raffaele PO PO intake tolerated: yes Flatus: yes Ambulation: yes Vital Signs (12 hours) Temp Pulse Resp BP Pulse Ox 03/23/19 08:05 97.7 F 57 L 14 96/52 L 99 03/23/19 04:41 98.0 F 57 L 14 94/50 L 97 03/23/19 00:12 97.9 F 60 14 97/53 L 97 03/22/19 20:35 97.9 F 56 L 14 104/56 L 96 Weight Weight 139 lb - Physical Examination General: NAD Respiratory: non-labored breathing Abdominal: no distention Skin: no rash Neurological: no gross focal deficits Psychiatric: A&Ox3, normal affect Result Diagrams: 03/23/19 05:24 Additional Labs: Post Labs Blood Type O POSITIVE 03/22/19 13:37 Hep Bs Antigen Non-Reactive S/CO (NonReactive) 03/22/19 13:37 (1) 38 weeks gestation of Code(s): Z3A.38 - 38 WEEKS GESTATION OF Status: Acute (2) delivery delivered Code(s): O82 - ENCOUNTER FOR DELIVERY WITHOUT INDICATION Status: Acute - Assessment/Plan POD1 doing well, no concerns, likely DC tomorrow.
[2019-03-23] MEDS ORDERED: Adacel (T-DAP) 0.5 ML SYRINGE IM ONE (09:00)
[2019-03-23] MEDS: Ferrous Sulfate 325 MG TAB PO SCH ×2 (10:03→21:13)
[2019-03-23] MEDS: Simethicone Chewable 80 MG TAB PO PRN ×3 (10:07→22:23)
[2019-03-23] MEDS: Docusate Calcium (SURFAK) 240 MG CAP PO SCH ×2 (10:07→21:12)
[2019-03-23] MEDS: Prenatal Vitamin 1 TAB PO SCH (10:07)
[2019-03-23] MEDS: HYDROcodone/Acetaminophen 5/325 mg Tablet PO PRN ×3 (11:06→22:23)
[2019-03-24] MEDS: HYDROcodone/Acetaminophen 5/325 mg Tablet PO PRN ×2 (03:00→11:46)
[2019-03-24 08:02] VITALS: BP 101/57; TEMP 98.6
[2019-03-24] MEDS: Docusate Calcium (SURFAK) 240 MG CAP PO SCH (08:06)
[2019-03-24] MEDS: Prenatal Vitamin 1 TAB PO SCH (08:06)
[2019-03-24] MEDS: Ibuprofen 800 MG TAB PO SCH ×2 (08:06→14:00)
--- NOTE | 2019-03-24 08:38 | PDOC.PP ---
Post Progress Note Post Day #: 1 Subjective: No concerns. Pain controlled. Minimal lochia. breast feeding. PO intake tolerated: yes Flatus: yes Ambulation: yes Vital Signs (12 hours) Temp Pulse Resp BP Pulse Ox 03/24/19 08:01 98.6 F 78 16 101/57 L 99 03/24/19 03:09 97.9 F 62 104/54 L 03/23/19 23:37 98.5 F 70 16 113/55 L Weight Weight 139 lb - Physical Examination General: NAD Cardiovascular: RRR Respiratory: non-labored breathing Abdominal: no distention, appropriately TTP Fundus firm & at: below umbilicus Extremities: negative homans (B) Skin: CS incision dry & intact, no rash Neurological: no gross focal deficits Psychiatric: A&Ox3, normal affect Result Diagrams: 03/23/19 05:24 Additional Labs: Post Labs Blood Type O POSITIVE 03/22/19 13:37 Hep Bs Antigen Non-Reactive S/CO (NonReactive) 03/22/19 13:37 (1) delivery delivered Code(s): O82 - ENCOUNTER FOR DELIVERY WITHOUT INDICATION Status: Acute - Assessment/Plan PPD2 Mild hypotension since delivery, asx. No tachycardia. Pt baseline. Mild anemia as expected post op. Otherwise VSS wnl Continue PP care this AM, plan for d/c today with infant. F/u 2 weeks incision check
[2019-03-24] MEDS: Simethicone Chewable 80 MG TAB PO PRN (08:57)
[2019-03-24] MEDS: Ferrous Sulfate 325 MG TAB PO SCH (09:02)
== END 2019-03-24 14:50 | disposition home or self-care (01) | DRG 788 ==
LOC: L&D/OP 12:11 → L&D 14:43 → 3SW 18:25
PROVIDERS: ADMIT Obstetrics & Gynecology; ATTEND Obstetrics & Gynecology
PROC: 10D00Z1 Extraction of Products of Conception, Low, Open Approach (ICD-10-PCS; principal; 2019-03-22)
DX: O34.211 Maternal care for low transverse scar from previous cesarean delivery (principal); O99.89 Other specified diseases and conditions complicating pregnancy, childbirth and the puerperium; N73.6 Female pelvic peritoneal adhesions (postinfective); Z3A.38 38 weeks gestation of pregnancy; Z37.0 Single live birth
CPT/HCPCS: 36415; 51702; 85027; 86780; 86850; 86900; 86901; 87340; 99283; J0690; J1100; J1885; J2001; J2274; J2405; J2590; J3010